=== PATIENT | male | born 1935 | race Caucasian/White ===

== ENCOUNTER 2020-02-13 00:02 | Inpatient (IN) | payer MEDICARE, OTHER ==
[~2020-02-13] VITALS: Ht 172.7 cm; Wt 84.7 kg
[~2020-02-13 00:02] MED LIST: AMLODIPINE BESYL5 MG PO; ASPIR 8181 M1 PO; ATOR10 PO; AZIT250 PO; FURO40 PO; HYDR10 PO; ISODIN10 PO; Levaquin500 MG PO; Loratadine10 MG PO; METO50 PO; PANT20 PO; POTCHL20ER PO; Ventolin/Prove6.7 GM INH
[2020-02-13 01:04] LABS: BASOPHILS ABSOLUTE AUTO 0.02 K/mm3 (0.00-0.23); BASOPHILS PERCENT AUTO 0 % (0-2); EOSINOPHILS ABSOLUTE AUTO 0.11 K/mm3 (0.00-0.68); EOSINOPHILS PERCENT AUTO 1 % (0-6); Hematocrit 44.6 % (37.0-53.0); Hemoglobin 14.4 g/dL (13.5-17.5); IMMATURE GRAN ABSOLUTE AUTO 0.02 K/mm3 (0.00-0.10); IMMATURE GRAN PERCENT AUTO 0 % (0-1); LYMPHOCYTES ABSOLUTE AUTO 1.23 K/mm3 (0.84-5.20); LYMPHOCYTES PERCENT AUTO 15 % (21-46); MONOCYTES ABSOLUTE AUTO 0.65 K/mm3 (0.16-1.47); MONOCYTES PERCENT AUTO 8 % (4-13); Mean Corpuscular HGB Conc 32.3 g/dL (31.5-36.5); Mean Corpuscular Volume 87 fL (80-100); Mean Platelet Volume 9.7 fL (9.1-12.4); NEUTROPHILS ABSOLUTE AUTO 6.18 K/mm3 (1.96-9.15); NEUTROPHILS PERCENT AUTO 75 % (41-73); Platelet Count 140 K/mm3 (150-400); RDW Coefficient Variation 14.5 % (11.7-14.2); RDW Standard Deviation 45.4 fL (35.1-46.3); Red Blood Cell Count 5.15 M/mm3 (4.30-5.90); White Blood Cell Count 8.21 K/mm3 (4.00-11.30)
[2020-02-13 01:17] LABS: International Normalized Ratio 1.05; Prothrombin Time Results 11.2 Sec (9.7-11.5)
[2020-02-13 01:19] LABS: Albumin, Blood 3.9 g/dL (3.4-5.0); Albumin/Globulin Ratio 1.4 (0.8-1.8); Bun/Creatinine Ratio 14.9 (12.0-20.0); Calcium, Blood 8.8 mg/dL (8.5-10.1); Creatinine, Blood 2.48 mg/dL (0.60-1.20); Globulin, Blood 2.7 g/dL (2.2-4.0); Potassium, Blood 3.6 mmol/L (3.5-5.5); Total Protein, Blood 6.6 g/dL (6.4-8.2)
[2020-02-13] MEDS ORDERED: MIRALAX17 G3 PO (02:31)
[2020-02-13] MEDS ORDERED: MELA3 PO (02:31)
--- NOTE | 2020-02-13 05:34 | NUR ---
SHIFT SUMMARY: PT IS ALERT AND ORIENTED. PT IS CALM AND COOPERATIVE WITH CARE. PT HAD SOME BLOODY RECTAL DISCHARGE, CHANGED AND CLEANED. PT DENIES PAIN, NAUSEA, VOMITING, AND SOB. PT RESTING COMFORTABLY IN BED, CALL LIGHT WITHIN REACH. NO ACUTE EVENTS SINCE ADMISSION. WILL CONTINUE TO MONITOR.
[2020-02-13 06:26] LABS: Hematocrit 39.9 % (37.0-53.0); Hemoglobin 13.4 g/dL (13.5-17.5)
[2020-02-13 13:40] LABS: Hematocrit 40.3 % (37.0-53.0); Hemoglobin 12.9 g/dL (13.5-17.5)
--- NOTE | 2020-02-13 17:43 | NUR ---
SHIFT SUMMARY SANTOS DENIED PAIN THIS SHIFT. SBA TO BR, CALLING APPROPRIATELY. 6 EPISODES OF BRB PER RECTUM INTO HAT IN BATHROOM, NO DIZZINESS. VSS. FAMILY VISITED. DR WILLSON CAME AT [facility], ORDERED GOLYTELY PREP STARTING 1800 TONIGHT TO BE FINISHED IN MORNING. NPO AT [facility] FOR COLONOSCOPY TOMORROW. WCTM
--- NOTE | 2020-02-13 21:50 | NUR ---
PT ORIENTED AND COOPERATIVE TYPICALLY BUT HAS DEMENTIA AND BECOMES MORE CONFUSED AT HS. FALL RISK IS HEIGHTENED TONIGHT D/T PT HAVING AN ACTIVE GI BLEED AND CURRENTLY ON GOLYTELY BOWEL PREP FOR SCOPE. HE'S VERY FORGETFULL AND IMPULSIVE OOB FOR FREQUENT LIQUID BM'S. HE'S PUTTING OUT LARGE AMTS OF DARK MAROON LIQUID STOOL MIXED W/LORENZO RED BLOOD AND BLOOD CLOTS. BED ALARM ON AND INCREASED PT ROUNDING FOR SAFETY. 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
--- NOTE | 2020-02-14 00:29 | NUR ---
PT CONT'S MORE CONFUSED, IMPULSIVE AND HAS BECOME INCREASINGLY AGGITATED AND RESTELESS. HE'S ATTEMPTING TO REMOVE IV AND TELEMETRY OFTEN. PT APPEARS MORE PALE AND SLIGHTLY CLAMMY. BP NOW 96/61 W/HR 105 BPM BUT HE DENIES DIZZYNESS OR FEELING LIGHTHEADED. HGB/HCT LAST CHECKED AT 1328 AND WAS 12.9/40.3. ALERTED TO CHANGES AND STAT HGB/HC RX'D W/500 ML NS BOLUS.
[2020-02-14 00:44] LABS: Hematocrit 36.3 % (37.0-53.0); Hemoglobin 11.7 g/dL (13.5-17.5)
--- NOTE | 2020-02-14 00:49 | NUR ---
500 ML NS BOLUS COMMENCED AND HGB/HCT DRAWN, RESULTS PENDING.
--- NOTE | 2020-02-14 00:57 | NUR ---
HGB/HCT NOW 11.7/36.3, WAS 12.9/40.3. VALUES WILL BE CHECKED AGAIN W/AM LABS.
--- NOTE | 2020-02-14 01:54 | NUR ---
PT IS BECOMING COMBATIVE, AGGITATED AND AGGRESSIVE W/INCREASING DIFFICULTY KEEPING PT FROM BEING HARM TO SELF D/T HIGH FALL RISK, CONSTANT ATTEMPTS OOB, PULLING AT LINES AND TELEMETRY AND UNABLE TO BE REDIRECTED OR FOLLOW COMMANDS. ALERTED. CHAZ VEST AND BILAT WRIST AND LEG RESTRAINTS RX'D. HALDOL 2-3MG IV Q6H PRN ORDERED W/3MG IV TO BE GIVEN NOW.
--- NOTE | 2020-02-14 01:58 | NUR ---
SECURITY CAME TO ROOM TO ASSIST W/GETTING PT RETRAINED AGAIN AFTER GETTING HIS CHAZ VEST UNTIED DESPITE WRIST RESTRAINTS. HE BECOMES VERY AGGRESSIVE AND COMBATIVE W/ATTEMPTS TO RETURN PT TO BED AND SECURE RESTRAINTS AGAIN. WILL MEDICATE W/HALDOL SOON MED AVAILABLE FROM PHARMACY.
--- NOTE | 2020-02-14 02:34 | NUR ---
HALDOL 3MG IV RECIEVED. BED ALARM ON AND SOFT RESTRAINT X4 EXT'S W/CHAZ VEST INTACT AT THIS TIME. WILL MONITOR CLOSELY FOR MEDICATION EFFECT.
--- NOTE | 2020-02-14 04:15 | NUR ---
PT MENTATION IMPROVING AND HE IS AGAIN ORIENTED TO SELF, FAMILY AND SURROUNDINGS W/SOME CONFUSION TO EVENT/DATE. HE IS AGAIN FOLLOWING INSTRUCTION BUT IS STILL RESTLESS AND ATTEMPTING TO REMOVE TELE/LINES. WILL MAINTAIN RESTRAINTS AT THIS TIME BUT ASSESS POSSIBILITY TO D/C THEM SOON.
[2020-02-14 05:11] LABS: BASOPHILS ABSOLUTE AUTO 0.02 K/mm3 (0.00-0.23); BASOPHILS PERCENT AUTO 0 % (0-2); EOSINOPHILS ABSOLUTE AUTO 0.07 K/mm3 (0.00-0.68); EOSINOPHILS PERCENT AUTO 1 % (0-6); Hematocrit 33.3 % (37.0-53.0); Hemoglobin 10.8 g/dL (13.5-17.5); IMMATURE GRAN ABSOLUTE AUTO 0.01 K/mm3 (0.00-0.10); IMMATURE GRAN PERCENT AUTO 0 % (0-1); LYMPHOCYTES ABSOLUTE AUTO 0.83 K/mm3 (0.84-5.20); LYMPHOCYTES PERCENT AUTO 16 % (21-46); MONOCYTES ABSOLUTE AUTO 0.34 K/mm3 (0.16-1.47); MONOCYTES PERCENT AUTO 6 % (4-13); Mean Corpuscular HGB 28.3 pg (26.0-34.0); Mean Corpuscular HGB Conc 32.4 g/dL (31.5-36.5); Mean Corpuscular Volume 87 fL (80-100); Mean Platelet Volume 9.9 fL (9.1-12.4); NEUTROPHILS ABSOLUTE AUTO 4.07 K/mm3 (1.96-9.15); NEUTROPHILS PERCENT AUTO 76 % (41-73); Platelet Count 102 K/mm3 (150-400); RDW Coefficient Variation 14.6 % (11.7-14.2); RDW Standard Deviation 46.2 fL (35.1-46.3); Red Blood Cell Count 3.82 M/mm3 (4.30-5.90); White Blood Cell Count 5.34 K/mm3 (4.00-11.30)
[2020-02-14 05:31] LABS: Albumin, Blood 3.2 g/dL (3.4-5.0); Albumin/Globulin Ratio 1.5 (0.8-1.8); Bilirubin, Total 1.2 mg/dL (0.1-1.0); Bun/Creatinine Ratio 14.2 (12.0-20.0); Calcium, Blood 8.3 mg/dL (8.5-10.1); Creatinine, Blood 2.12 mg/dL (0.60-1.20); Globulin, Blood 2.2 g/dL (2.2-4.0); Potassium, Blood 3.1 mmol/L (3.5-5.5); Total Protein, Blood 5.4 g/dL (6.4-8.2)
--- NOTE | 2020-02-14 06:03 | NUR ---
PT NOW DEMONSTRATES ABILITY TO FOLLOW COMMANDS. HE'S A/OX3, COOPERATIVE AND NO LONGER IS COMBATIVE, AGGRESSIVE OR AGGITATED. HE'S STILL IMPULSIVE TO USE TOILET/BSC BUT IS MANAGEABLE W/USE OF BED ALARM. RESTRAINTS DC'D AT 0600.
--- NOTE | 2020-02-14 06:07 | NUR ---
SUMMARY: PT BEGAN SHIFT A/OX3 AND COOPERATIVE W/CARE. HE WAS COMMENCED ON THE 1ST PORTION OF GOLYTELY FOR GI BLEED AT 1800 PER EMAR SO WAS OFTEN IMPULSIVE TO BSC. FREQ LOOSE BLOODY BM'S OBSERVED BUT PT HAD BEEN ABLE TO FOLLOW COMMANDS W/SBA. NIGHT PROGRESSED HE BECAME INCREASINGLY MORE CONFUSED. HE HAS HX OF DEMENTIA BUT STAFF WERE UNAWARE OF ANY POTENTIAL SUNDOWNERS. PT BECAME EXTREMELY ANXIOUS, AGGITATED, COMBATIVE, IMPOSSIBLE TO REDIRECT, RESTLESS, FIGITY AND MADE CONSTANT ATTEMPTS TO REMOVE TELE AND LINES. SECURITY AND MULTIPLE STAFF REQUIRED TO SAFELY RETURN PT TO BED. FALL PREC'S WERE IN PLACE AND INCREASED ROUNDING ATTENDED TO BUT PT SHOVED RN, ATTEMPTED TO HIT 1ST PRESSMAN ON WEB PRESS AND WOULD KICK AT STAFF SO CHAZ VEST AND X4 EXT SOFT RESTRAINTS WERE RX'D AND COMMENCED. HALDOL IV Q6H PRN ORDERED AND 3MG IV WAS RECIEVED. HE REMAINED RESTRAINED AND PULLING AT LINES BUT EVENTUALLY BEGAN TO CALM. STAT HGB/HCT WAS RX'D BECUASE PT APPEARED MORE PALE AND CLAMMY W/SBP 90'S DESPITE DENYING DIZZNESS. 500 ML NS BOLUS WAS RECIEVED FOR IMPROVED BP. HE'D HAD APPROX 12 LARGE MAROON AND LORENZO BLOOD STOOLS W/CLOTS BUT HGB/HCT ONLY DROPPED SLIGHTLY. HE BEGAN TO SLOWLY CLEAR IN MENTATION AND BECOME MORE ORIENTED AGAIN AROUND 0500. PT STARTED FOLLOWING COMMANDS AND WAS AGAIN A/OX3 THOUGH REMAINED FORGETFULL AND RESTLESS. RESTRAINTS WERE DC'D AT 0600 BECAUSE BEHAVIOR WAS AGAIN MANAGEABLE W/BED ALARM THOUGH HE STILL CAN BE IRRITABLE AT TIMES. 2ND ROUND OF GOLYTELY BEGAN AT 0600 PER EMAR. HE'S AWARE TO CALL FOR BSC ASSIST. ATTENDS CHANGED REGULARLY T/O NOCTE FOR GRADUAL RECTAL BLEEDING. HGB/HCT NOW 10.8/33.3, WAS 12.9/40.3 AT BEGINNING OF SHIFT. HE REMAINS ON TELEMETRY IN AFIB W/HR 90'S-100'S. VSS/AFEBRILE AND NO ACUTE CHANGES OUTSIDE OF AMS W/BEHAVIORAL ISSUES. SCOPE PLANNED FOR TODAY. WCTM AND REPORT TO DAY RN.
--- NOTE | 2020-02-14 13:04 | NUR ---
History, Chart, Medications and Allergies reviewed before start of procedure. Patient confirms NPO status and agrees with scheduled surgery.
--- NOTE | 2020-02-14 14:19 | NUR ---
02/14/20 1419 [facility] History, Chart, Medications and Allergies reviewed before start of procedure.MONITOR INTACT WITH CONTINUOUS PULSE OXIMETRY AND INTERMITTENT BP.3-LEAD EKG REVIEWED WITH PHYSICIAN PRIOR TO START OF PROCEDURE.O2 VIA N/C INTACT THROUGHOUT SEDATION/PROCEDURE. See Anesthesia record.
--- NOTE | 2020-02-14 15:22 | NUR ---
Received report from [facility] RN. Patient arrived to unit on gurney, sleepy but arousable and able to follow commands. Post op vitals initiated, slid over using sliding sheet x 3 assist. K-rider completed upon arrival back from procedure. Bed in lowest position, bed alarm on for safety, call light in reach.
--- NOTE | 2020-02-14 17:30 | NUR ---
Shift Summary A/Ox4 this morning, however, as day progressed, patient became A/Ox1 to self unaware of reason for admission, date, and hospital. Became difficult to redirect and kept wandering in the hallway. Possible visual hallucinations as patient stated "That's a good girl there on his chair" pointing to an empty chair. Very restless. Complain of hip pain when ambulating in unit. 1p SBA. Patient had colonoscopy today with Dr. Platt, tolerated procedure well. Vitals have been stable. Due to risk of elopement and safety concerns from increased confusion, patient has been transferred to room MED 351. Dominik (son) has been notified of room changes. Dr. Platt had already discussed results of colonoscopy with Siobhan and Dominik ([id number] and son). Will continue to monitor and report to oncoming RN.
--- NOTE | 2020-02-15 04:56 | NUR ---
RN CONCURRENT REVIEW SUMMARY PT A&OX3, ABLE TO MAKE NEEDS KNOWN. PLEASANT AND COOPERATIVE TO CARE. NO C/O PAIN OR ANY DISCOMFORT THIS SHIFT. NO C/O CP, SOB, OR N&V. ON TELE AFIB 120's PER VALVE TESTER. CALM AND RESTED IN BED T/O SHIFT. NO ATTEMPTS OF SELF TRANSFERRING NOTED THIS SHIFT. 1P SBA TO BSC. BED AT LOWEST POSTION, ALARM ON, AND CALL LIGHT WITHIN REACH.
--- NOTE | 2020-02-15 05:57 | NUR ---
PT ATTEMPTED BM THIS AM. NO STOOL BUT 2 SMALL RED BLOOD SPOTS NOTED IN TOILET.
[2020-02-15 08:49] LABS: Hematocrit 30.8 % (37.0-53.0); Hemoglobin 9.8 g/dL (13.5-17.5)
[2020-02-15 09:08] LABS: Calcium, Blood 8.5 mg/dL (8.5-10.1); Creatinine, Blood 2.14 mg/dL (0.60-1.20); Potassium, Blood 3.5 mmol/L (3.5-5.5)
--- NOTE | 2020-02-15 14:39 | NUR ---
DISCHARGE SUMMARY PT A/O X2 AND SBA IN ROOM. PT DC'D IN A WHEELCHAIR TO HOME W/FAMILY. PT TO FOLLOW UP WITH ONCOLOGY AND INSTRUCTED FAMILY MEMBERS THAT THEY WILL NEED TO CALL TO MAKE THAT APPOINTMENT.
[2020-02-24] MEDS ORDERED: METO50 PO (12:29)
[2020-02-24] MEDS ORDERED: LASIX40 MG PO (12:29)
[2020-02-24] MEDS ORDERED: HYDR10 PO (12:30)
[2020-02-24] MEDS ORDERED: PANT20 PO (12:30)
[2020-02-24] MEDS ORDERED: ISODIN10 PO (12:30)
[2020-02-24] MEDS ORDERED: POTCHL20ER PO (12:30)
[2020-02-24] MEDS ORDERED: Prinivil10 MG PO (12:31)
== END 2020-02-15 13:46 | disposition home health service (06) | DRG 375 ==
LOC: ER 00:02 → MEDS 00:03
PROVIDERS: Emergency Medicine; Internal Medicine; Internal Medicine Gastroenterology; ADMIT Internal Medicine
PROC: 0DBF8ZX Excision of Right Large Intestine, Via Natural or Artificial Opening Endoscopic, Diagnostic (ICD-10-PCS; principal; 2020-02-14 13:30)
DX: C20 Malignant neoplasm of rectum (principal); K62.5 Hemorrhage of anus and rectum; I13.0 Hypertensive heart and chronic kidney disease with heart failure and stage 1 through stage 4 chronic kidney disease, or unspecified chronic kidney disease; I50.22 Chronic systolic (congestive) heart failure; K62.82 Dysplasia of anus; W11.XXXA Fall on and from ladder, initial encounter; Y92.9 Unspecified place or not applicable; Z90.79 Acquired absence of other genital organ(s); Z79.82 Long term (current) use of aspirin; N18.30 Chronic kidney disease, stage 3 unspecified; I25.5 Ischemic cardiomyopathy; I27.20 Pulmonary hypertension, unspecified
CPT/HCPCS: 36415; 70450; 74176; 80048; 80053; 85014; 85018; 85025; 85610; 85730; 86850; 86900; 86901; 88305; 93005; 93010; 94760; 96374; 97116; 97161; 99285-25; A9270-GY; C9113; G0378; J1630; J2704; J3480; J7030; J7040; J7120; U0004

== ENCOUNTER 2020-03-07 08:50 | Day surgery (SDC) | payer MEDICARE, OTHER ==
[~2020-03-07] VITALS: Ht 172.7 cm; Wt 85.7 kg
[~2020-03-07 08:50] MED LIST changes: +LASIX40 MG PO; +MELA3 PO; +MIRALAX17 G3 PO; +Prinivil10 MG PO
--- NOTE | 2020-03-07 12:38 | NUR ---
03/07/20 1238 Elizabeth Dillon S LATE ENTRY. PT. DIDN'T KNOW ALL HIS MEDS, PER [facility].CML HIS DAUGHTER IN LAW PUTS HIS MEDS IN CONTAINER FOR HIM TO TAKE. PT. DID TELL ME HIS RIDE WAS HIS SISTER IN LAW BUT PER DR. WILLSON IT IS HIS DAUGHTER IN LAW.
== END 2020-03-07 12:15 | disposition home or self-care (01) ==
LOC: ORSCSDS 08:50
PROVIDERS: Internal Medicine Gastroenterology
PROC: 0DBP8ZX Excision of Rectum, Via Natural or Artificial Opening Endoscopic, Diagnostic (ICD-10-PCS; principal; 2020-03-07 10:30)
DX: K62.5 Hemorrhage of anus and rectum (principal); C18.9 Malignant neoplasm of colon, unspecified; I48.91 Unspecified atrial fibrillation; I12.9 Hypertensive chronic kidney disease with stage 1 through stage 4 chronic kidney disease, or unspecified chronic kidney disease; N18.30 Chronic kidney disease, stage 3 unspecified; N18.9 Chronic kidney disease, unspecified; Z79.899 Other long term (current) drug therapy
CPT/HCPCS: 88305; J2405; J2704; J7120

== ENCOUNTER 2020-03-19 16:22 | Emergency (ER) | payer MEDICARE, OTHER ==
[~2020-03-19] VITALS: Ht 172.7 cm; Wt 83.0 kg
== END 2020-03-19 17:28 | disposition home or self-care (01) ==
LOC: ER 16:22
DX: S52.125A Nondisplaced fracture of head of left radius, initial encounter for closed fracture (principal); Z79.899 Other long term (current) drug therapy; W18.2XXA Fall in (into) shower or empty bathtub, initial encounter
CPT/HCPCS: 73060; 73090; 99283-25